=== PATIENT | male | born 1985 | race Caucasian/White ===

== ENCOUNTER 2017-03-04 06:30 | Emergency (ER) | payer OTHER ==
[~2017-03-04] VITALS: Ht 170.2 cm; Wt 154.2 kg
[2017-03-04 06:31] VITALS: BP 128/81
--- NOTE | 2017-03-04 06:38 | NUR ---
TO LOBBY, FRANCIE, VSS, A/W FOR BED, NITIN NOTED
--- NOTE | 2017-03-04 06:47 | NUR ---
TO ER BED 12
--- NOTE | 2017-03-04 07:25 | NUR ---
32m bib self with c/o anxiety since this AM. Pt sts he woke up with headache and feeling anxious. Pt denies any n/v/d or sob at this time. Pt is aox4, rr are even and unlabored. Pt positioned to comfort, bed down. NAD. VSS. All needs met at this time. Will continue to monitor.
--- NOTE | 2017-03-04 08:00 | NUR ---
pt denies any sob or cp at this time. pt sts he "feels better..ready to go home". Pt denies any SI or HI ideation.
[2017-03-04 08:01] VITALS: BP 122/80
--- NOTE | 2017-03-04 08:01 | NUR ---
Patient discharged with v/s stable. Written and verbal after care instructions given and explained. Patient alert, oriented and verbalized understanding of instructions. Ambulatory with to car. All questions addressed prior to discharge. ID band removed. Patient advised to follow up with PMD. Rx of Pepcid given. Patient educated on indication of medication including possible reaction and side effects. Opportunity to ask questions provided and answered.
== END 2017-03-04 08:01 | disposition home or self-care (01) ==
LOC: MED 06:30
DX: J45.909 Unspecified asthma, uncomplicated (principal); K21.9 Gastro-esophageal reflux disease without esophagitis; F41.9 Anxiety disorder, unspecified; Z90.89 Acquired absence of other organs
CPT/HCPCS: 93005; 99283

== ENCOUNTER 2019-04-12 20:54 | Emergency (ER) | payer OTHER ==
[~2019-04-12] VITALS: Ht 172.7 cm; Wt 144.2 kg
[~2019-04-12 20:54] MED LIST: ALPR1TAB2 PO; FAMO-90 PO; PRON INH
[2019-04-12 21:21] VITALS: BP 129/73
--- NOTE | 2019-04-12 21:26 | NUR ---
PT AMBULATED TO BED #9.
--- NOTE | 2019-04-12 21:30 | NUR ---
34 YEAR OLD MALE COMPLAINS OF NONRADIATING CHEST PAIN X 1 WEEK. LOIDA DESCRIBES PAIN 9/10 SHARP PAIN AND OVER THE PAST WEEK IT HAS GOTTEN PROGRESSIVELY WORSE. PATIENT COMPLAINS OF PALPITATIONS AND WHEN HE DOES HE HAS SOB AND DIZZINESS. PATIENT AOX4, BREATHING EVEN AND UNLABORED, SKIN WARM AND DRY. BED IN LOWEST POSITION, LOCKED, BED RAIL UPX1. ERMD MADE AWARE OF STATUS. PMH - TONSILITIS ALLERGIES - PCN
[2019-04-12] MEDS ORDERED: NITROGLYCERIN 2% 1 GM PKT TP ONE (21:50)
[2019-04-12] MEDS ORDERED: ASPIRIN 325 MG TAB PO ONE (21:50)
[2019-04-12 22:24] LABS: BASOPHILS # (AUTO) 0.1 K/uL (0.00-0.22); EOSINOPHILS # (AUTO) 0.3 K/uL (0-0.4); EOSINOPHILS % (AUTO) 3.4 % (0.0-4.0); HEMATOCRIT 43.2 % (36-52); HEMOGLOBIN 14.6 g/dL (12.0-18.0); LYMPHOCYTES # (AUTO) 2.1 K/uL (2.0-11.5); LYMPHOCYTES % (AUTO) 23.6 % (20.5-51.1); MEAN CORPUSCULAR HEMOGLOBIN 29 pg (27-31); MEAN CORPUSCULAR HGB CONC 34 g/dL (33-37); MONOCYTES # (AUTO) 0.7 K/uL (0.8-1.0); MONOCYTES % (AUTO) 7.7 % (1.7-9.3); NEUTROPHILS # (AUTO) 5.7 K/uL (1.8-7.7); NEUTROPHILS % (AUTO) 64.3 % (42.2-75.2); PLATELET COUNT (AUTO) 281 K/uL (140-450); RED BLOOD CELL COUNT(AUTO) 5.09 MIL/uL (4.20-6.10); WHITE BLOOD COUNT (AUTO) 8.8 K/uL (4.8-10.8)
--- NOTE | 2019-04-12 22:32 | NUR ---
PT STATES HE STILL HAS CHEST DISCOMFORT BUT DENIES PAIN AT THIS TIME. ERMD MADE AWARE.
--- NOTE | 2019-04-12 22:32 | NUR ---
PATIENT AOX4, BREATHING EVEN AND UNLABORED.
[2019-04-12 22:38] LABS: CHOL/HDL RATIO 3.2 (1-4.5)
[2019-04-12 22:41] LABS: ALBUMIN 3.7 g/dL (3.4-5.0); ANION GAP 10.7 (8-16); CARBON DIOXIDE 29.2 mmol/L (21-32); CREATININE 0.9 mg/dL (0.6-1.3); POTASSIUM 3.9 mmol/L (3.5-5.1); TOTAL BILIRUBIN 0.3 mg/dL (0.0-1.0)
[2019-04-12 22:54] LABS: CREATINE KINASE MB 0.5 ng/mL (0-3.6)
[2019-04-12 23:10] VITALS: BP 96/59
--- NOTE | 2019-04-12 23:10 | NUR ---
Patient discharged with v/s stable. Written and verbal after care instructions about anxiety and panic attacks given and explained. Patient verbalized understanding. Ambulatory with steady gait. All questions addressed prior to discharge. Advised to follow up with PMD.
--- NOTE | 2019-04-12 23:10 | NUR ---
NITROGLYCERIN PATCH REMOVED
== END 2019-04-12 23:10 | disposition home or self-care (01) ==
LOC: MED 20:54
DX: R00.2 Palpitations (principal); F41.9 Anxiety disorder, unspecified; J45.909 Unspecified asthma, uncomplicated; Z88.0 Allergy status to penicillin; Z79.899 Other long term (current) drug therapy; Z98.890 Other specified postprocedural states
CPT/HCPCS: 36415; 71045; 80053; 80061; 82550; 82553; 83880; 84484; 85025; 85379; 93005; 99285; Q0092

== ENCOUNTER 2019-09-23 20:53 | Emergency (ER) | payer OTHER ==
[~2019-09-23] VITALS: Ht 170.2 cm; Wt 138.3 kg
[2019-09-23 21:08] VITALS: BP 104/86
--- NOTE | 2019-09-23 21:08 | NUR ---
C/O COUGH AND HIGH BLOOD PRESSURE X 2 DAYS . PT STATES HE HAS HAD PRODUCTIVE COUGH X 2 DAYS, YELLOW/GREEN PHELGM. PT + SOB/ CP/VOMITING X1 / CHILLS / DIAPHORETIC / THROAT PAIN . PT STATES HIS NEIGHBOR TESTED POSITIVE FOR COVID AND HE WAS AROUND THE . PT STATES HIS BP 163/107 , HE TOOK HIS MOMS HTN MEDICATION EARLIER TODAY. PMH: ASTHMA, HTN DENIES AX TO MEDICATIONS
--- NOTE | 2019-09-23 22:27 | NUR ---
PATIENT LEFT WITHOUT BEING SEEN BY DR. CRAIG. NO FURTHER CARE PROVIDED FOR PATIENT.
[2019-09-23 22:29] VITALS: BP 104/86
== END 2019-09-23 22:27 | disposition left against medical advice (07) ==
LOC: MED 20:53
DX: R05 Cough (principal); Z53.21 Procedure and treatment not carried out due to patient leaving prior to being seen by health care provider